=== PATIENT | male | born 1980 | race Caucasian/White ===

== ENCOUNTER 2017-09-16 03:23 | Emergency (ER) | payer MEDICAID ==
[~2017-09-16] VITALS: Ht 170.2 cm; Wt 104.3 kg
[~2017-09-16 03:23] MED LIST: ABAC300; ALBIPROI INH; ALBU.083IS; ALBU90I INH; ALBU90OI INH; ALBU90OI6 INH; ALBU90OI61 INH; AMIT75 PO; AMOX500 PO; AZIT250 PO; AZIT500 PO; Amoxicillin500 MG PO; Antivert25 MG PO; BENZ100A PO; BUSP10 PO; BUSP15 PO; CEPH500 PO; CIPR500 PO; COMBIVENT RESPIM4 GM INH; CYCL10 PO; Cipro500 MG PO; DIVA500EC; DOXY100 PO; Dazidox10 MG; FLUSAL1005 IH; FLUT110OIA; FLUT44OIA; FLUT44OIA IH; FLUT44OIA INH; Flagyl500 MG PO; HYDACE5 PO; HYDR1TAB94 PO; IBUP800 PO; METPRE4DP PO; METR500 PO; Mobic15 MG PO; NAPR500 PO; NAPR550 PO; Neurontin 300300 MG PO; OMEP10ER PO; OMEP20ER PO; ONDA4ODT MM; OXYACE5T PO; OXYACE7.5T PO; PENVK500 PO; PRED10 PO; PRED20 PO; PROM25 PO; Prednisone20 MG PO; RANI150 PO; RXALBOI INH; TRAM50 PO; Ultram50 MG PO; Veetids 500500 MG PO; Ventolin Soln3 ML INH; Zofran Odt4 MG SL
== END 2017-09-16 03:43 | disposition left against medical advice (07) ==
LOC: ER 03:23
DX: M79.644 Pain in right finger(s) (principal); M79.641 Pain in right hand; Z88.5 Allergy status to narcotic agent; Z88.6 Allergy status to analgesic agent; J45.909 Unspecified asthma, uncomplicated

== ENCOUNTER 2017-09-26 16:12 | Emergency (ER) | payer SELFPAY ==
[~2017-09-26] VITALS: Ht 170.2 cm; Wt 105.7 kg
== END 2017-09-26 17:22 | disposition left against medical advice (07) ==
LOC: ER 16:12
DX: S89.92XA Unspecified injury of left lower leg, initial encounter (principal); Z53.20 Procedure and treatment not carried out because of patient's decision for unspecified reasons; J45.909 Unspecified asthma, uncomplicated; Z87.891 Personal history of nicotine dependence; Z88.5 Allergy status to narcotic agent; Z79.51 Long term (current) use of inhaled steroids; W50.1XXA Accidental kick by another person, initial encounter; Y93.71 Activity, boxing
CPT/HCPCS: 99281

== ENCOUNTER 2018-05-09 05:18 | Emergency (ER) | payer MEDICAID ==
[~2018-05-09] VITALS: Ht 170.2 cm; Wt 104.3 kg
[2018-05-09 05:58] LABS: Influenza A Negative (NEGATIVE); Influenza B Negative (NEGATIVE)
[2018-05-09] MEDS ORDERED: Amoxicillin500 MG PO (06:56)
[2018-05-09] MEDS ORDERED: IBUP800 PO (06:56)
[2018-05-09] MEDS ORDERED: Acetaminophen-1 EAC1 PO (06:56)
== END 2018-05-09 07:09 | disposition home or self-care (01) ==
LOC: ER 05:18
PROVIDERS: Emergency Medicine
DX: J06.9 Acute upper respiratory infection, unspecified (principal); H66.92 Otitis media, unspecified, left ear; Z88.5 Allergy status to narcotic agent; Z88.6 Allergy status to analgesic agent; Z79.899 Other long term (current) drug therapy; J45.909 Unspecified asthma, uncomplicated; Z87.891 Personal history of nicotine dependence
CPT/HCPCS: 87081; 87430; 87804; 99283

== ENCOUNTER 2018-09-21 03:25 | Emergency (ER) | payer SELFPAY ==
[~2018-09-21] VITALS: Ht 170.2 cm; Wt 104.3 kg
[~2018-09-21 03:25] MED LIST changes: +Acetaminophen-1 EAC1 PO
[2018-09-21] MEDS ORDERED: Bactrim Ds Tab1 EACH PO (03:46)
== END 2018-09-21 03:51 | disposition home or self-care (01) ==
LOC: ER 03:25
DX: L72.3 Sebaceous cyst (principal); L03.221 Cellulitis of neck; J45.909 Unspecified asthma, uncomplicated; F17.200 Nicotine dependence, unspecified, uncomplicated; Z88.5 Allergy status to narcotic agent
CPT/HCPCS: 99282

== ENCOUNTER 2022-08-12 23:07 | Emergency (ER) | payer OTHER ==
[~2022-08-12] VITALS: Ht 170.2 cm; Wt 81.7 kg
[~2022-08-12 23:07] MED LIST changes: +Bactrim Ds Tab1 EACH PO; +OXAYDO5 M1 PO
[2022-08-12 23:17] VITALS: BP 124/80
[2022-08-13] MEDS ORDERED: CYCL10 PO (00:40)
[2022-08-13] MEDS ORDERED: ASPI81CH PO (00:54)
[2022-08-13] MEDS ORDERED: GABA100 PO (00:54)
== END 2022-08-13 01:03 | disposition home or self-care (01) ==
LOC: ER 23:07
DX: G89.29 Other chronic pain (principal); M54.6 Pain in thoracic spine; Z86.73 Personal history of transient ischemic attack (TIA), and cerebral infarction without residual deficits; Z88.5 Allergy status to narcotic agent; Z88.6 Allergy status to analgesic agent; Z87.891 Personal history of nicotine dependence
CPT/HCPCS: 99283

== ENCOUNTER 2023-08-21 18:23 | Emergency (ER) | payer OTHER ==
[~2023-08-21] VITALS: Ht 170.2 cm; Wt 113.4 kg
[~2023-08-21 18:23] MED LIST changes: +ASPI81CH PO; +GABA100 PO
[2023-08-21 19:02] LABS: BASOPHILS ABSOLUTE AUTO 0.03 K/mm3 (0.00-0.23); BASOPHILS PERCENT AUTO 0 % (0-2); EOSINOPHILS ABSOLUTE AUTO 0.18 K/mm3 (0.00-0.68); EOSINOPHILS PERCENT AUTO 3 % (0-6); Hematocrit 46.8 % (37.0-53.0); IMMATURE GRAN ABSOLUTE AUTO 0.01 K/mm3 (0.00-0.10); IMMATURE GRAN PERCENT AUTO 0 % (0-1); LYMPHOCYTES ABSOLUTE AUTO 2.22 K/mm3 (0.84-5.20); LYMPHOCYTES PERCENT AUTO 32 % (21-46); MONOCYTES ABSOLUTE AUTO 0.42 K/mm3 (0.16-1.47); MONOCYTES PERCENT AUTO 6 % (4-13); Mean Corpuscular HGB 28.1 pg (26.0-34.0); Mean Corpuscular HGB Conc 34.2 g/dL (31.5-36.5); Mean Corpuscular Volume 82 fL (80-100); Mean Platelet Volume 10.7 fL (9.1-12.4); NEUTROPHILS ABSOLUTE AUTO 3.99 K/mm3 (1.96-9.15); NEUTROPHILS PERCENT AUTO 58 % (41-73); Platelet Count 208 K/mm3 (150-400); RDW Coefficient Variation 12.3 % (11.7-14.2); White Blood Cell Count 6.85 K/mm3 (4.00-11.30)
[2023-08-21 19:38] LABS: Albumin, Blood 3.8 g/dL (3.4-5.0); Bilirubin, Total 0.4 mg/dL (0.1-1.0); Bun/Creatinine Ratio 15.4 (12.0-20.0); Calcium, Blood 8.6 mg/dL (8.5-10.1); Creatinine, Blood 0.78 mg/dL (0.60-1.20); Globulin, Blood 3.8 g/dL (2.2-4.0); Potassium, Blood 3.8 mmol/L (3.5-5.5); Total Protein, Blood 7.6 g/dL (6.4-8.2)
[2023-08-21] MEDS ORDERED: levETIRAcetam 500 MG in NS 100 ML IV ONE (19:55)
[2023-08-21 20:30] VITALS: BP 148/78
== END 2023-08-21 21:29 | disposition home or self-care (01) ==
LOC: ER 18:23
PROVIDERS: Emergency Medicine
DX: R41.82 Altered mental status, unspecified (principal); I69.220 Aphasia following other nontraumatic intracranial hemorrhage; I69.251 Hemiplegia and hemiparesis following other nontraumatic intracranial hemorrhage affecting right dominant side; Z79.82 Long term (current) use of aspirin
CPT/HCPCS: 70450; 80053; 82947; 85025; 93005; 93010; 96365; 99285-25; J1953

== ENCOUNTER 2024-03-14 16:21 | Inpatient (IN) | payer BC, OTHER ==
[~2024-03-14] VITALS: Ht 170.2 cm; Wt 90.7 kg
[2024-03-14 18:15] LABS: BASOPHILS ABSOLUTE AUTO 0.02 K/mm3 (0.00-0.23); BASOPHILS PERCENT AUTO 0 % (0-2); EOSINOPHILS ABSOLUTE AUTO 0.05 K/mm3 (0.00-0.68); EOSINOPHILS PERCENT AUTO 1 % (0-6); Hematocrit 43.2 % (37.0-53.0); IMMATURE GRAN ABSOLUTE AUTO 0.01 K/mm3 (0.00-0.10); IMMATURE GRAN PERCENT AUTO 0 % (0-1); LYMPHOCYTES ABSOLUTE AUTO 1.17 K/mm3 (0.84-5.20); LYMPHOCYTES PERCENT AUTO 18 % (21-46); MONOCYTES ABSOLUTE AUTO 0.38 K/mm3 (0.16-1.47); MONOCYTES PERCENT AUTO 6 % (4-13); Mean Corpuscular HGB 28.8 pg (26.0-34.0); Mean Corpuscular HGB Conc 34.7 g/dL (31.5-36.5); Mean Corpuscular Volume 83 fL (80-100); NEUTROPHILS ABSOLUTE AUTO 4.86 K/mm3 (1.96-9.15); NEUTROPHILS PERCENT AUTO 75 % (41-73); Platelet Count 204 K/mm3 (150-400); RDW Coefficient Variation 12.6 % (11.7-14.2); RDW Standard Deviation 37.9 fL (35.1-46.3); Red Blood Cell Count 5.21 M/mm3 (4.30-5.90); White Blood Cell Count 6.49 K/mm3 (4.00-11.30)
[2024-03-14 18:40] LABS: Albumin, Blood 4.1 g/dL (3.4-5.0); Albumin/Globulin Ratio 1.2 (0.8-1.8); Bilirubin, Total 0.5 mg/dL (0.1-1.0); Bun/Creatinine Ratio 15.7 (12.0-20.0); Calcium, Blood 8.8 mg/dL (8.5-10.1); Creatinine, Blood 0.76 mg/dL (0.60-1.20); Globulin, Blood 3.5 g/dL (2.2-4.0); Potassium, Blood 3.2 mmol/L (3.5-5.5); Total Protein, Blood 7.6 g/dL (6.4-8.2)
[2024-03-14 20:23] LABS: Source, Urine Clean Catch
[2024-03-14 20:37] LABS: Bilirubin, Urine Neg (Neg); Blood, Urine 4+ (Neg); Glucose Qualitative, Urine Neg (Neg); Ketones, Urine 4+ (Neg); Leukocyte Esterase, Urine Neg (Neg); Nitrite, Urine Neg (Neg); Protein, Urine 1+ (Neg); Urobilinogen, Urine 2+ (Normal); pH, Urine 6.5 (5.0-8.0)
[2024-03-14 20:49] LABS: Appearance, Urine Clear (Clear); Color, Urine Yellow (P-Yellow)
[2024-03-14 20:50] LABS: White Blood Cells, Urine 0-2 /hpf (0-5)
[2024-03-14 20:51] LABS: Bacteria Few /hpf; Calcium Oxalate Crystals Many /hpf; Squamous Epithelial Cells Rare /hpf (Few)
[2024-03-14] MEDS ORDERED: Ondansetron 4 MG TAB PO PRN (22:00)
[2024-03-14] MEDS ORDERED: Magnesium Hydroxide Conc 10 ML UDC PO PRN (22:00)
[2024-03-14] MEDS ORDERED: Labetalol HCL 5 MG/ML 4ML Injection (Single Dose) IV PRN (22:05)
[2024-03-14] MEDS ORDERED: Aspirin 325 MG Tab PO ONE (22:05)
[2024-03-14] MEDS ORDERED: Melatonin 3 MG Tab PO PRN (22:05)
[2024-03-14 23:16] LABS: International Normalized Ratio 1.19; Prothrombin Time Results 12.6 Sec (9.7-11.5)
[2024-03-14] MEDS ORDERED: Potassium Chloride 40 MEQ in NS 250 ML IV ONE (23:40)
[2024-03-15 04:59] LABS: Alanine Aminotransfer (ALT/SGP 31 U/L (12-78); Albumin, Blood 3.6 g/dL (3.4-5.0); Albumin/Globulin Ratio 1.2 (0.8-1.8); Alk Phos 51 U/L (50-136); Anion Gap 11 mmol/L (3-11); Aspartate Aminotrans (AST/SGOT 21 U/L (12-37); Bilirubin, Total 0.5 mg/dL (0.1-1.0); Blood Urea Nitrogen 12 mg/dL (8-24); Bun/Creatinine Ratio 15.5 (12.0-20.0); CO2, Blood 27 mmol/L (21-32); Calcium, Blood 8.5 mg/dL (8.5-10.1); Chloride, Blood 110 mmol/L (98-108); Cholesterol 75 mg/dL (50-200); Creatinine, Blood 0.78 mg/dL (0.60-1.20); Glomerular Filtration Rate 115 (60-); Glucose, Blood 103 mg/dL (70-99); HDL Cholesterol 37 mg/dL (>39); LDL/HDL RATIO 0.6; Low Density Lipoprotein Chol 22 mg/dL (0-110); Magnesium, Blood 2.2 mg/dL (1.6-2.4); Potassium, Blood 3.8 mmol/L (3.5-5.5); Sodium, Blood 144 mmol/L (136-145); Total Protein, Blood 6.6 g/dL (6.4-8.2); Triglycerides 79 mg/dL (30-160); Very Low Density Lipoprot Chol 15 mg/dL (6-32)
[2024-03-15 05:01] LABS: BASOPHILS ABSOLUTE AUTO 0.03 K/mm3 (0.00-0.23); BASOPHILS PERCENT AUTO 1 % (0-2); EOSINOPHILS ABSOLUTE AUTO 0.15 K/mm3 (0.00-0.68); EOSINOPHILS PERCENT AUTO 2 % (0-6); Hematocrit 40.4 % (37.0-53.0); Hemoglobin 13.8 g/dL (13.5-17.5); IMMATURE GRAN ABSOLUTE AUTO 0.02 K/mm3 (0.00-0.10); IMMATURE GRAN PERCENT AUTO 0 % (0-1); LYMPHOCYTES PERCENT AUTO 34 % (21-46); MONOCYTES ABSOLUTE AUTO 0.49 K/mm3 (0.16-1.47); MONOCYTES PERCENT AUTO 8 % (4-13); Mean Corpuscular HGB 28.3 pg (26.0-34.0); Mean Corpuscular HGB Conc 34.2 g/dL (31.5-36.5); Mean Corpuscular Volume 83 fL (80-100); NEUTROPHILS ABSOLUTE AUTO 3.41 K/mm3 (1.96-9.15); NEUTROPHILS PERCENT AUTO 55 % (41-73); RDW Coefficient Variation 12.8 % (11.7-14.2); RDW Standard Deviation 38.6 fL (35.1-46.3); Red Blood Cell Count 4.87 M/mm3 (4.30-5.90)
[2024-03-15 05:17] LABS: Platelet Count 162 K/mm3 (150-400)
[2024-03-15 08:45] LABS: Bicarbonate Venous 26.5 mmol/L (24.0-30.0); PCO2 Venous 43.6 mmHg (38-42); pH Blood Venous 7.41 (7.34-7.37)
[2024-03-15 08:49] LABS: U Amphetamine Screen Not Detected; U Barbituate Screen Not Detected; U Benzodiazapine Screen Not Detected; U Buprenorphine Screen Not Detected; U Cannabinoids Screen DETECTED; U Cocaine Screen Not Detected; U Methadone Screen Not Detected; U Methamphetamine Screen Not Detected; U Opiates Screen Not Detected; U Oxycodone Screen Not Detected; U Phencyclidine Screen Not Detected
[2024-03-15] MEDS ORDERED: Sennosides 8.6 MG Tab PO SCH (09:00)
[2024-03-15] MEDS ORDERED: Clopidogrel Bisulfate 75 MG Tab PO SCH (09:00)
[2024-03-15 09:19] LABS: Phosphorus, Blood 2.6 mg/dL (2.5-4.9); Thyroid Stimulating Hormone 0.359 uIU/mL (0.360-4.800)
[2024-03-15 09:54] VITALS: BP 131/82
[2024-03-15 12:34] VITALS: BP 139/82
[2024-03-15 12:55] LABS: Free Thyroxine 1.23 ng/dL (0.70-1.60); Triiodothyronine, Free 2.34 pg/mL (2.18-3.98)
[2024-03-15] MEDS ORDERED: Aspirin 81 MG Chew PO SCH (18:00)
--- NOTE | 2024-03-15 18:41 | NUR ---
ADMIT NOTE/SHIFT SUMMARY PT ARRIVED TO PCU FROM ED VIA ED STRETCHER THIS AM. PT WAS SLID BY 3 STAFF FROM ED STRETCHER TO PCU BED. PT ALERT, ABLE TO MAKE NEEDS KNOWN. MUMBLED SPEECH, SOMETIMES DIFFICULT TO UNDERSTAND. FACIAL DROOP NOTED WELL R SIDED DEFECITS. NEEDING HELP OPENING THINGS ON TRAY, BUT ABLE TO FEED SELF. SP02>90% ON RA, TELEMETRY SHOWS NSR, HR 70'S. PT CHANGED TO MED TELE STATUS. INCONTINENT OF URINE AND STOOL. CLOTHES AND LINEN CHANGED. PURWIK TO SUCTION. UPDATED FAMILY PER PT'S REQUEST VIA PHONE. MULTIPLE FAMILY MEMBERS IN ROOM THIS EVENING. CALL LIGHT IN REACH.
[2024-03-15 20:15] VITALS: BP 122/85
[2024-03-15] MEDS ORDERED: Ibuprofen 400 MG Tab PO PRN (22:05)
[2024-03-15] MEDS ORDERED: Benzocaine Oral Spray 0.5ML UD MT PRN (22:05)
--- NOTE | 2024-03-15 22:27 | NUR ---
Transfer note. Night resident was phoned for complaints of oral abscess. Resident came to the bedside and will place orders for ABX, pain meds. Pt remains A&Ox2, poor historian. Family at bedside for night assessment and was able to answer some questions. Weakness to right arm/leg. Mumbled speech. Pt is very pleasant and cooperative with care. Pt is very apologetic for any needs. Pt has been incontinent of bowel and bladder. Male wicking system in place. Pt is able to make needs known, call light is within reach. All belongings were taken with Pt on transfer.
--- NOTE | 2024-03-15 22:36 | NUR ---
RECIEVED PATIENT RECIEVED PT FROM PCU AT 2235. PT AOX4, COOPERATIVE, AND ABLE TO MAKE NEEDS KNOWN. PT ON BEDREST, WITH R SIDED WEAKNESS. PT ON TELEMETRY. THIS RN RN TO ASSUME CARE FOR PT.
[2024-03-15 22:41] VITALS: BP 126/73
[2024-03-16] VITALS (7 sets, daily range): BP systolic 97–131; BP diastolic 55–78
--- NOTE | 2024-03-16 00:36 | NUR ---
PT TRANSFERED FROM [facility] @ 2711. AUTOMATION QA LEAD CALLED TO REPORT HR SUSTAINED IN 40'S. APPARENTLY THIS IS NEW, PT HR DID DROP INTO 40'S BRIEFLY AND HR BACK UP IN UPPER 50'S LOW 60'S. NOTIFIED DR. MOSER WITH ORDERS TO MONITOR HR AND SYMTOMS. IT PT SUSTAINS A HR IN THE 30'S WITH HYPOTENSION NOTIFY DR. MOSER.
--- NOTE | 2024-03-16 06:05 | NUR ---
NURSE NOTE PER TELE, PT WAS SB RATE 35. CHECKED VITALS AND OTHER VSS. PT HAD NO COMPLAINTS OF PAIN OR DISCOMFORT. CHECKED IN WITH TELE AT 0607, AND PT WAS SB RATE 55.
--- NOTE | 2024-03-16 06:25 | NUR ---
SHIFT SUMMARY PT TRANSFERRED FROM PCU AT 2237. PT WAS AOX4, WITH SPEECH DEFICITS, AND R SIDED WEAKNESS. PT WAS INCONTINENT, WITH PURWIK USED FOR URINATION. OVERNIGHT, PT HAD EPISODES OF SB IN 40S. BASELINE WAS NSR 60S. PT SUSTAINED IN THE 40S, VITALS WERE TAKEN, WHICH WERE STABLE. PT HAD NO COMPLAINTS. HOSPITALIST WAS CALLED AND ADVISED TO CALL AGAIN IF PT HR WENT IN 30S AND VITALS WERE NOT STABLE. PER TELE, PT HAD AN EPISODE OF SB 35, AND VITALS WERE TAKEN, WHICH WERE STABLE. PT HAD NO COMPLAINTS. NO OTHER ACUTE EVENTS OVERNIGHT.
[2024-03-16] MEDS ORDERED: NS 250 ML IV PRN (07:40)
[2024-03-16] MEDS ORDERED: MetroNIDAZOLE 500 MG Tab PO SCH (09:00)
[2024-03-16] MEDS ORDERED: FLUoxetine HCL 20 MG CAP PO SCH (15:00)
--- NOTE | 2024-03-16 17:21 | NUR ---
PT AOX4 AND COOPERATIVE OF CARE. PT IS ABLE TO BE INDEPENDENT TO BSC NO DISTESS NOTED. PT HAS BEEN TITRATED DOWN TO 2L WHILE AWAKE AND PT IS MAINTIANING HIGHER 90s. TREATED FOR KNEE PAIN PER EMAR. NO DISTRESS NOTED AND CALL LIGHT IN REACH.
--- NOTE | 2024-03-16 17:25 | NUR ---
PT IS AOX4 JUST HAS TROUBLE TALKING VERBALLY, AT TIMES HE GET MUCH CLEARER WITH HIS SPEACH ESPECIALLY WHEN HE IS TRYING TO COMMUNICATE WITH HIS FAMILY. RIGHT SIDED WEAKNESSS CONTINUES. PT HAS BEEN HELPING WITH MUCH OF HIS INCONTENT CHANGES HE CAN AND CALLS IMMEDIATELY WHEN WET. TREATED FOR TOOTH PAIN ON L SIDE OF MOUTH PER EMAR. CALL LIGHT WITHIN REACH WILL CONTINUE TO MONITOR.
[2024-03-17 04:59] VITALS: BP 139/99
--- NOTE | 2024-03-17 05:58 | NUR ---
SHIFT SUMMARY PT HAS BEEN RESTING COMFORTABLY OVERNIGHT. HE REMAINS AOX4. HIS FAMILY VISITED FOR AN HOUR AT SHIFT CHANGE, WHICH SEEMED TO DELIGHT HIM. PT REMAINS ON BEDREST AND IS INCONTINENT X2, BUT HE HAS BEEN ABLE TO NOTICE WHEN HIS ATTENDS ARE SOILED AND CLEAN HIMSELF WITH LITTLE HELP. PT URINATED 2X TIMES OVERNIGHT. PT ON TELEMETRY. BED HAS BEEN LOCKED IN LOWEST POSITION. NO ACUTE EVENTS OVERNIGHT.
[2024-03-17 07:36] VITALS: BP 106/82
[2024-03-17 15:14] VITALS: BP 149/68
--- NOTE | 2024-03-17 15:52 | NUR ---
PT WORKED WITH PT/OT TODAY, SEE NOTES FOR DETAILS. NEW PLAN IS FOR PT TO SIT UP IN THE CHAIR FOR ALL MEALS, PT WILL BE A X2A/GB/W STANDPIVOT TO CHAIR. PT HAD MINIMAL C/O RIGHT SHOULDER PAIN WHILE WORKING WITH PT/OT THIS NURSE TOLD MD MURPHY AND SCHEDULED R SHOULDER 2V XRAY. AT THIS TIME PT HAS NO QUESTIONS OR CONCERNS.
--- NOTE | 2024-03-17 17:39 | NUR ---
PT HAD AND ACUTE EPISODE OF 13O HEART RATE, VOALIZING IS HEART WAS BEATING FAST AND THIS NURSE ASKED ADDITIONAL QUESTION, THIS NURSE GRABBED EKG AND CALLED MD MURPHY FOR EVALUATION, ORDERS PLACED AND WATING ON LABS TO RESOVLE.
[2024-03-17 17:45] LABS: BASOPHILS ABSOLUTE AUTO 0.03 K/mm3 (0.00-0.23); BASOPHILS PERCENT AUTO 0 % (0-2); EOSINOPHILS ABSOLUTE AUTO 0.07 K/mm3 (0.00-0.68); EOSINOPHILS PERCENT AUTO 1 % (0-6); Hemoglobin 16.2 g/dL (13.5-17.5); IMMATURE GRAN ABSOLUTE AUTO 0.01 K/mm3 (0.00-0.10); IMMATURE GRAN PERCENT AUTO 0 % (0-1); LYMPHOCYTES ABSOLUTE AUTO 1.49 K/mm3 (0.84-5.20); LYMPHOCYTES PERCENT AUTO 20 % (21-46); MONOCYTES ABSOLUTE AUTO 0.47 K/mm3 (0.16-1.47); MONOCYTES PERCENT AUTO 6 % (4-13); Mean Corpuscular HGB 28.8 pg (26.0-34.0); Mean Corpuscular HGB Conc 35.2 g/dL (31.5-36.5); Mean Corpuscular Volume 82 fL (80-100); Mean Platelet Volume 11.8 fL (9.1-12.4); NEUTROPHILS ABSOLUTE AUTO 5.34 K/mm3 (1.96-9.15); NEUTROPHILS PERCENT AUTO 72 % (41-73); Platelet Count 247 K/mm3 (150-400); RDW Coefficient Variation 12.6 % (11.7-14.2); Red Blood Cell Count 5.63 M/mm3 (4.30-5.90); White Blood Cell Count 7.41 K/mm3 (4.00-11.30)
[2024-03-17 18:24] LABS: Albumin, Blood 4.2 g/dL (3.4-5.0); Albumin/Globulin Ratio 1.2 (0.8-1.8); Bilirubin, Total 0.4 mg/dL (0.1-1.0); Bun/Creatinine Ratio 13.5 (12.0-20.0); Calcium, Blood 9.4 mg/dL (8.5-10.1); Creatinine, Blood 0.89 mg/dL (0.60-1.20); Globulin, Blood 3.5 g/dL (2.2-4.0); Potassium, Blood 3.8 mmol/L (3.5-5.5); Total Protein, Blood 7.7 g/dL (6.4-8.2)
[2024-03-17 19:52] VITALS: BP 125/100
[2024-03-18 03:51] VITALS: BP 139/91
--- NOTE | 2024-03-18 05:57 | NUR ---
SHIFT SUMMARY PT HAS BEEN AOX4. PT WAS TAKEN FOR CXR EARLY IN SHIFT, AND HE WAS NOTICEABLY DESPONDENT. PT HAS BEEN WITHDRAWN SINCE THEN. PT HAS HAD R SHOULDER PAIN WHEN HE MOVES HIS R ARM. OTHERWISE, PT HAS HAD NO COMPLAINTS. PT REMAINS MOTIVATED WHEN HE NEEDS TO CHANGE HIS ATTENDS. PT IS ON TELE. NO ACUTE EVENTS OVERNIGHT.
[2024-03-18 08:00] VITALS: BP 141/72
--- NOTE | 2024-03-18 16:20 | NUR ---
PT HAD A GREAT DAY TODAY. HAD MINIMAL C/O PAIN AND PRN MEDICATIONS RESOLVED PAIN. OT HAS NO QUESTIONS OR CONCERNS AT THIS TIME
[2024-03-18 16:32] VITALS: BP 136/69
[2024-03-18 20:43] VITALS: BP 131/56
[2024-03-19 04:25] VITALS: BP 126/111
--- NOTE | 2024-03-19 06:21 | NUR ---
SHIFT SUMMARY: PT IS ALERT AND ORIENTED. PT IS CALM AND COOPERATIVE WITH CARE. PT CALLS APPROPRIATELY. PT DENIES PAIN, NAUSEA, VOMITING, AND SOB. PT SLEPT INTERMITTENTLY T/O THE NIGHT. NO ACUTE CHANGES OR COMPLICATIONS. PENDING SNF OR IRU PLACEMENT. WILL REPORT TO DAY NURSE.
[2024-03-19 07:20] VITALS: BP 142/77
[2024-03-19 11:19] VITALS: BP 141/62
[2024-03-19 15:27] VITALS: BP 129/75
[2024-03-19] MEDS ORDERED: Atorvastatin 40 MG Tab PO SCH (16:00)
--- NOTE | 2024-03-19 16:44 | NUR ---
SHIFT SUMMARY PATIENT MEDICATED FOR RIGHT NECK AND SHOULDER PAIN X1 WITH ADVIL. DENIES NAUSEA AND SHORTNESS OF BREATH. RESPIRATIONS EVEN AND UNLABORED ON ROOM AIR. GOOD APPETITE. FAMILY AT BEDSIDE IN AM. WORKED WITH PT/OT TODAY, STATED TOO TIRED TO STAND. ANSWERS ORIENTATION QUESTIONS APPROPRIATELY AND MAKES NEEDS KNOW. PLEASANT AND COOPERATIVE WITH CARE.
[2024-03-19 19:28] VITALS: BP 123/57
[2024-03-20 03:04] VITALS: BP 135/86
[2024-03-20] MEDS ORDERED: Calcium Carbonate 500 MG Tab Chew PO PRN (03:10)
--- NOTE | 2024-03-20 04:12 | NUR ---
SHIFT SUMMARY - NO ACUTE CHANGES THIS SHIFT. PT MAKES HIS NEEDS KNOWN AND USES THE CALL LIGHT APPROPRIATELY. PT HAS BEEN INCONTINENT OF URINE - ATTENDS IN PLACE. PT HAS RIGHT SIDED DEFICIT. PT HAS A HISTORY OF A CVA. CALL LIGHT WITHIN REACH. BED IN LOW POSITION. FLUIDS AT BEDSIDE.
[2024-03-20 07:48] VITALS: BP 137/65
--- NOTE | 2024-03-20 11:37 | NUR ---
Nurse approached this credit front office developer and chaplain cope in the [place] about a pt's rosary beads breaking and the pt requesting more. We obtained rosary beads and visited pt. Pt is awake and alert but difficult to understand. Pt requested the beads be blessed. Pump Assembler mike provided a blessing. Pt expressed deep gratitude for blessing. Pt requested prayer for his wellness. This credit front office developer provided a prayer and pt verbally expressed gratitude. Pt appeared encouraged by the visit. Expressed availability for future visits and departed.
[2024-03-20 15:58] VITALS: BP 133/83
--- NOTE | 2024-03-20 18:26 | NUR ---
NO ACUTE CHANGES THIS SHIFT. PT IS ALERT AND ORIENTED X4, ABLET TO EXPRESS NEEDS, ASSIST WITH ADLS. POLITE. IMPAIRED SPEECH. OT DID WORK WITH PT TODAY.
[2024-03-20 20:08] VITALS: BP 141/78
--- NOTE | 2024-03-21 03:58 | NUR ---
SHIFT SUMMARY PT ALERT ORIENTED X 4 CALLS APPROPRIATELY. USES CALL LIGHT. TAKES HIS MEDS CRUSHED IN APPLESAUCE. VSS ON RA SATTING AT 96% ON RA. HE C/O DIFFICULTY FALLING ASLEEP AND MEDICATED WITH MELATONIN WITH GOOD RELIEF AND SLEPT MOST OF THE NIGHT. NO C/O PAIN THIS SHIFT. HES INC OF B&B AND WEARS BRIEFS, HES AWAITING SNF PLACEMENT. REMAINS WITH RT SIDED DEFECIT R/T HIS CVA. HES RESTING IN BED AT THIS TIME WITH CALL LIGHT IN REACH
[2024-03-21 05:35] VITALS: BP 141/89
[2024-03-21 08:00] VITALS: BP 122/64
--- NOTE | 2024-03-21 15:20 | NUR ---
Pt is awake and alert. Pt is joined at bedside by brother. Pt has suffered a stroke and has difficulty speaking clearly. Pt and brother are supported by other family members locally. Pt's condition seems to be gradually improving. Prayed with pt and as thanked by pt and brother for the visit.
[2024-03-21 16:40] VITALS: BP 118/88
--- NOTE | 2024-03-21 17:59 | NUR ---
SHIFT SUMMARY: PATIENT HAS HAD NO NEW CHANGES THIS SHIFT. PATIENT A/O, MUMBLED SPEECH, WEAKNESS TO R UPPER AND LOWER EXTREMITY, PLEASANT AND COOPERATIVE c CARE. PATIENT WORKED c PT/OT TODAY, INCONTINENT OF BOWEL/BLADDER, ATTENDS PLACED AND CHANGED PRN. PATIENT MEDICATED FOR BACK PAIN PER EMAR c GOOD EFFECT. VITAL SIGNS REVIEWED. CALL LIGHT IN REACH.
[2024-03-21 20:07] VITALS: BP 139/62
--- NOTE | 2024-03-22 03:01 | NUR ---
SHIFT SUMM: PT IS A PLEASANT 43 YO FULL CODE WHO WAS ADMITTED FOR CVA. PT HAS RIGHT SIDED WEAKNESS AND IS INCONT TO BOWEL AND URINE BUT CALLS FOR HELP CHANGING AND TRIES TO DO MOST OF HIS CARE ON HIS OWN. PT EXPRESSES RECENTLY LOSING HIS MOTHER BUT IS TRYING TO REMAIN POSITIVE GIVEN HIS SITUATION. PT HAS BEEN WORKING WITH PT/OT AND HOPING TO FIND SNF PLACEMENT SOON. PT HAS NO IV ACCESS W/A ORDER. PT TAKES MEDS CRUSHED IN APPLESAUCE AND SOFT BITE SIZED DIET.PT MUMBLES WHEN HE SPEAKS FROM CVA DEFICITS. PT HAS NOT BEEN IN PAIN THIS SHIFT BUT DID REQUEST SOMETHING TO HELP HIM SLEEP. PT HAS CALL LIGHT IN REACH AND CALLS NEEDED.
[2024-03-22 05:38] VITALS: BP 133/89
[2024-03-22 05:41] VITALS: BP 133/89
[2024-03-22 07:31] VITALS: BP 125/72
[2024-03-22] MEDS ORDERED: ASPI81CH PO (11:07)
[2024-03-22] MEDS ORDERED: ATOR40TA PO (11:07)
[2024-03-22] MEDS ORDERED: MELA3 PO (11:08)
[2024-03-22] MEDS ORDERED: Prozac20 MG PO (11:08)
--- NOTE | 2024-03-22 11:26 | NUR ---
SHIFT/DISCHARGED SUMMARY: PATIENT HAS HAD NO CHANGES THIS SHIFT. PATIENT A/O, WEAKNESS TO R UPPER AND LOWER EXTREMITY. PATIENT DENIES CP/PRESSURE, SOB, N/V AND DIZZINESS. PATIENT RECEIVED SCHEDULED MEDS PER EMAR. PATIENT HAS GOOD APPETITE, NO ISSUES OR TROUBLE SWALLOWING. PATIENT INCONTINENT OF BOWEL/BLADDER, ATTENDS PLACED AND CHANGED PRN. PATIENT HAS HAD NO NEW CONCERNED OR NO COMPLAINTS THIS SHIFT. PATIENT BROTHER SANTHOSH UPDATED c PLAN OF CARE DC TO [facility] AT EXPECTED TIME FRAME FOR FINISHER [employer]. SANTHOSH VERBALIZED UNDERSTANDING AND NO FURTHER QUESTIONS. PATIENT DISCHARGED TO [facility] FOR REHAB. TR GIVEN TO SARA NURSE. DISCHARGE INSTRUCTIONS PACKET GIVEN TO PETER PARKS. ALL PERSONAL BELONGINGS WERE SENT c THE PATIENT. PATIENT LEFT THE ROOM AT 1120 VIA W/CHAIR.
== END 2024-03-22 11:20 | DRG 57 ==
LOC: ER 16:21 → ERHOLD 21:55 → MEDS 21:55 → PCU 21:55 → MEDS 03-15 22:37
PROVIDERS: Family Medicine; Student in an Organized Health Care Education/Training Program; ADMIT Internal Medicine
DX: I69.954 Hemiplegia and hemiparesis following unspecified cerebrovascular disease affecting left non-dominant side (principal); R47.1 Dysarthria and anarthria; G51.0 Bell's palsy; R47.02 Dysphasia; E87.6 Hypokalemia; F32.A Depression, unspecified; M25.511 Pain in right shoulder; Z88.8 Allergy status to other drugs, medicaments and biological substances; Z88.5 Allergy status to narcotic agent; F15.10 Other stimulant abuse, uncomplicated; Z79.82 Long term (current) use of aspirin; Z79.899 Other long term (current) drug therapy
CPT/HCPCS: 36415; 70450; 73030; 80053; 80061; 81001; 82607; 82746; 82803; 83735; 84100; 84439; 84443; 84481; 84484; 85025; 85610; 85730; 86592; 92523; 92610; 93005; 93010; 97110; 97112; 97162; 97166; 97530; 97535; 99285-25; A9270; J3480; J7050

== ENCOUNTER 2024-03-30 12:10 | Emergency (ER) | payer BC, OTHER ==
[~2024-03-30] VITALS: Ht 175.3 cm; Wt 102.1 kg
[~2024-03-30 12:10] MED LIST changes: +ATOR40TA PO; +MELA3 PO; +Prozac20 MG PO
[2024-03-30 12:18] VITALS: BP 140/71
[2024-03-30] MEDS ORDERED: Clindamycin 600mg in D5W 50 ML IV ONE (13:00)
[2024-03-30 13:04] LABS: BASOPHILS ABSOLUTE AUTO 0.03 K/mm3 (0.00-0.23); BASOPHILS PERCENT AUTO 0 % (0-2); EOSINOPHILS ABSOLUTE AUTO 0.09 K/mm3 (0.00-0.68); EOSINOPHILS PERCENT AUTO 1 % (0-6); Hematocrit 45.7 % (37.0-53.0); Hemoglobin 15.4 g/dL (13.5-17.5); IMMATURE GRAN ABSOLUTE AUTO 0.02 K/mm3 (0.00-0.10); IMMATURE GRAN PERCENT AUTO 0 % (0-1); LYMPHOCYTES ABSOLUTE AUTO 1.61 K/mm3 (0.84-5.20); LYMPHOCYTES PERCENT AUTO 17 % (21-46); MONOCYTES ABSOLUTE AUTO 0.44 K/mm3 (0.16-1.47); MONOCYTES PERCENT AUTO 5 % (4-13); Mean Corpuscular HGB Conc 33.7 g/dL (31.5-36.5); Mean Corpuscular Volume 83 fL (80-100); Mean Platelet Volume 11.3 fL (9.1-12.4); NEUTROPHILS ABSOLUTE AUTO 7.16 K/mm3 (1.96-9.15); NEUTROPHILS PERCENT AUTO 77 % (41-73); Platelet Count 238 K/mm3 (150-400); RDW Coefficient Variation 12.7 % (11.7-14.2); RDW Standard Deviation 38.4 fL (35.1-46.3); White Blood Cell Count 9.35 K/mm3 (4.00-11.30)
[2024-03-30 13:14] LABS: Bun/Creatinine Ratio 23.6 (12.0-20.0); Calcium, Blood 8.8 mg/dL (8.5-10.1); Creatinine, Blood 0.72 mg/dL (0.60-1.20); Potassium, Blood 3.9 mmol/L (3.5-5.5)
[2024-03-30] MEDS ORDERED: CLIN300 PO (14:13)
== END 2024-03-30 17:05 | disposition home or self-care (01) ==
LOC: ER 12:10
PROVIDERS: Emergency Medicine
DX: K04.7 Periapical abscess without sinus (principal); K05.6 Periodontal disease, unspecified; E78.5 Hyperlipidemia, unspecified; J45.909 Unspecified asthma, uncomplicated; F17.290 Nicotine dependence, other tobacco product, uncomplicated; Z88.5 Allergy status to narcotic agent; Z88.6 Allergy status to analgesic agent; Z79.82 Long term (current) use of aspirin; Z79.02 Long term (current) use of antithrombotics/antiplatelets; Z79.899 Other long term (current) drug therapy; Z79.890 Hormone replacement therapy
CPT/HCPCS: 70487; 80048; 85025; 96374-59; 99284-25; Q9967

== ENCOUNTER 2024-08-17 12:52 | Inpatient (IN) | payer BC, OTHER ==
[~2024-08-17] VITALS: Ht 170.2 cm; Wt 84.6 kg
[~2024-08-17 12:52] MED LIST changes: +CLIN300 PO
[2024-08-17 13:22] LABS: Source, Urine Clean Catch
[2024-08-17 13:26] LABS: Bilirubin, Urine Neg (Neg); Color, Urine Yellow (P-Yellow); Glucose Qualitative, Urine Neg (Neg); Ketones, Urine Neg (Neg); Leukocyte Esterase, Urine Neg (Neg); Protein, Urine 1+ (Neg); Specific Gravity, Urine 1.010 (1.003-1.022); Urobilinogen, Urine NORM (Normal)
[2024-08-17] MEDS ORDERED: DiphenhydrAMINE HCl 50 MG/ML 1ML Vial ONE (13:27)
[2024-08-17] MEDS ORDERED: Haloperidol Lactate Inj. 5 MG/ML Injection ONE (13:27)
[2024-08-17 13:36] LABS: White Blood Cells, Urine 0-2 /hpf (0-5)
[2024-08-17 13:37] LABS: U Amphetamine Screen Not Detected; U Barbituate Screen Not Detected; U Benzodiazapine Screen Not Detected; U Buprenorphine Screen Not Detected; U Cannabinoids Screen DETECTED; U Cocaine Screen Not Detected; U Methadone Screen Not Detected; U Methamphetamine Screen Not Detected; U Opiates Screen Not Detected; U Oxycodone Screen Not Detected; U Phencyclidine Screen Not Detected
[2024-08-17] MEDS ORDERED: Haloperidol Lactate Inj. 5 MG/ML Injection IM ONE (13:55)
[2024-08-17] MEDS ORDERED: DiphenhydrAMINE HCl 50 MG/ML 1ML Vial IM ONE (13:55)
[2024-08-17 14:07] LABS: BASOPHILS ABSOLUTE AUTO 0.02 K/mm3 (0.00-0.23); BASOPHILS PERCENT AUTO 0 % (0-2); EOSINOPHILS ABSOLUTE AUTO 0.00 K/mm3 (0.00-0.68); EOSINOPHILS PERCENT AUTO 0 % (0-6); Hematocrit 48.7 % (37.0-53.0); Hemoglobin 16.0 g/dL (13.5-17.5); IMMATURE GRAN ABSOLUTE AUTO 0.04 K/mm3 (0.00-0.10); IMMATURE GRAN PERCENT AUTO 0 % (0-1); LYMPHOCYTES ABSOLUTE AUTO 1.21 K/mm3 (0.84-5.20); LYMPHOCYTES PERCENT AUTO 12 % (21-46); MONOCYTES ABSOLUTE AUTO 0.37 K/mm3 (0.16-1.47); MONOCYTES PERCENT AUTO 4 % (4-13); Mean Corpuscular HGB Conc 32.9 g/dL (31.5-36.5); Mean Corpuscular Volume 85 fL (80-100); NEUTROPHILS ABSOLUTE AUTO 8.19 K/mm3 (1.96-9.15); NEUTROPHILS PERCENT AUTO 83 % (41-73); NRBC ABSOLUTE 0.00 K/mm3 (0.00-0.02); NRBC Auto 0.0 /100 WBC (0.0-0.2); Platelet Count 226 K/mm3 (150-400); RDW Coefficient Variation 13.1 % (11.7-14.2); RDW Standard Deviation 40.2 fL (35.1-46.3)
[2024-08-17] MEDS ORDERED: SIME80CH PO (14:19)
[2024-08-17] MEDS ORDERED: PRAZ1 PO (14:20)
[2024-08-17] MEDS ORDERED: ZINC15 PO (14:20)
[2024-08-17] MEDS ORDERED: OMEP20ER PO (14:21)
[2024-08-17] MEDS ORDERED: GABA300 PO (14:21)
[2024-08-17] MEDS ORDERED: GABA100 PO (14:22)
[2024-08-17] MEDS ORDERED: SENNA LAXATIVE8.6 MG PO (14:22)
[2024-08-17] MEDS ORDERED: DIVA500EC PO (14:24)
[2024-08-17 14:27] LABS: Salicylate <1.7 mg/dL (2.8-20.0)
[2024-08-17 14:45] LABS: Alanine Aminotransfer (ALT/SGP 57 U/L (12-78); Albumin, Blood 4.6 g/dL (3.4-5.0); Albumin/Globulin Ratio 1.2 (0.8-1.8); Anion Gap 17 mmol/L (3-11); Aspartate Aminotrans (AST/SGOT 35 U/L (12-37); Bilirubin, Total 0.5 mg/dL (0.1-1.0); Blood Urea Nitrogen 13 mg/dL (8-24); CO2, Blood 20 mmol/L (21-32); Calcium, Blood 8.9 mg/dL (8.5-10.1); Chloride, Blood 108 mmol/L (98-108); Creatinine, Blood 0.84 mg/dL (0.60-1.20); Ethanol (Alcohol), Blood, Med 302 mg/dL; Globulin, Blood 3.7 g/dL (2.2-4.0); Glucose, Blood 109 mg/dL (70-99); Potassium, Blood 3.2 mmol/L (3.5-5.5); Sodium, Blood 142 mmol/L (136-145); Total Protein, Blood 8.3 g/dL (6.4-8.2)
[2024-08-17] MEDS ORDERED: Ziprasidone Mesylate 20 MG / Vial IM ONE (14:45)
[2024-08-17 14:46] LABS: Acetaminophen, Random <2.0 ug/mL (10.0-30.0)
[2024-08-17] MEDS ORDERED: Midazolam HCL 1 MG/ML 5MLVIAL IM ONE (15:50)
[2024-08-17] MEDS ORDERED: Midazolam HCl 1MG / ML 2ML Vial ONE (15:52)
[2024-08-17] MEDS ORDERED: Midazolam HCl 1MG / ML 2ML Vial IV ONE (15:55)
[2024-08-17] MEDS ORDERED: NS 1,000 ML IV SCH ×2 (18:45)
[2024-08-17 19:44] LABS: pH Blood Venous 7.33 (7.34-7.37)
[2024-08-17] MEDS ORDERED: Diazepam 5 MG / ML 2ML SYR IV PRN (20:10)
[2024-08-17 20:15] LABS: Anion Gap 8.0 mmol/L (3-11); Blood Urea Nitrogen 10.0 mg/dL (8-24); CO2, Blood 26.0 mmol/L (21-32); Calcium, Blood 7.9 mg/dL (8.5-10.1); Chloride, Blood 116.0 mmol/L (98-108); Creatinine, Blood 0.93 mg/dL (0.60-1.20); Glucose, Blood 91.0 mg/dL (70-99); Potassium, Blood 4.0 mmol/L (3.5-5.5); Sodium, Blood 146.0 mmol/L (136-145)
[2024-08-17] MEDS ORDERED: LEVOCARNITINE 100 MG/ML PO SCH (21:00)
[2024-08-17 23:54] LABS: pH Blood Venous 7.32 (7.34-7.37)
[2024-08-18] VITALS (9 sets, daily range): BP systolic 83–140; BP diastolic 50–67
[2024-08-18] MEDS ORDERED: Albuterol 2.5 MG/3 ML VIAL INH PRN (03:45)
[2024-08-18 04:41] LABS: Anion Gap 14.0 mmol/L (3-11); Blood Urea Nitrogen 14.0 mg/dL (8-24); CO2, Blood 21.0 mmol/L (21-32); Calcium, Blood 8.6 mg/dL (8.5-10.1); Chloride, Blood 114.0 mmol/L (98-108); Creatinine, Blood 0.75 mg/dL (0.60-1.20); Glucose, Blood 58.0 mg/dL (70-99); Potassium, Blood 4.0 mmol/L (3.5-5.5); Sodium, Blood 145.0 mmol/L (136-145)
[2024-08-18] MEDS ORDERED: Enoxaparin 40 MG/0.4 ML SYR SC SCH (09:00)
[2024-08-18] MEDS ORDERED: Divalproex Sodium 500 MG TABCR PO SCH ×2 (09:00→10:39)
[2024-08-18] MEDS ORDERED: DEPAKOTE ER500 M2 PO (10:27)
--- NOTE | 2024-08-18 12:45 | NUR ---
UPDATE DR. BELLO IN TO SEE PATIENT. VERBAL ORDERS TO DISCONTINUE SI PRECAUTIONS. PT REMAINS PLEASANT AND COOPERATIVE WITH CARE. PT REPOSITIONING HIMSELF IN THE BED. BED BATH OFFERED, BUT PT REFUSES FOR NOW. LR INFUSING PER ORDERS. WILL CONTINUE PLAN OF CARE
--- NOTE | 2024-08-18 17:23 | NUR ---
SHIFT SUMMARY PT REMAINS ALERT AND ORIENTED. O2 SATS HAVE REMAINED ABOVE 90% ON RA. PT DENIES ANY PAIN. HR REMAINS SINUS KOBI TO NSR. BP STABLE. PT HAS BEEN CONTINENT OF BOWEL AND BLADDER THIS AFTERNOON. PT UP TO BSC WITH 1 ASSIST TO TRANSFER. SPOUSE IN TO VISIT PT THIS AFTERNOON. STATUS CHANGED TO MEDICAL THIS AM. REPORT GIVEN TO TITO LEYVA TO ASSUME CARE. PT TO BE TRANSFERRED VIA .
--- NOTE | 2024-08-18 18:06 | NUR ---
PT WAS A ICU TRANSFER. PT RESTING COMFORTABLY. THIS NURSE AGREES WITH PREVIOUS NURSE ASSESSMENT. PT HAS NO QUESTIONS OR CONCERNS AT THIS TIME
[2024-08-19 04:12] VITALS: BP 115/96
--- NOTE | 2024-08-19 04:28 | NUR ---
SHIFT SUMMARY: PT AOX4, TIRED AND SLEEPING WELL. CALLS APPROPRIATELY AND ABLE TO MAKE NEEDS KNOWN. PT TOLERATING FLUIDS OKAY, BUT IS ANNOYED ABOUT HAVING TO KEEP ARM STRAIGHT, FORGETS IN HIS SLEEP. OTHERWISE IS VERY PLEASANT. GOOD PO INTAKE AND TOLERATING PO MEDS. NO SEIZURE ACTIVITY. BEEN RUNNING SINUS KOBI ALL NIGHT. IND WITH URINAL. NO ACUTE OVERNIGHT EVENTS. PT IN BED RESTING, BED IN LOWEST POSITION, CALL LIGHT IN REACH. CONTINUING CARE.
[2024-08-19 07:16] VITALS: BP 128/55
[2024-08-19] MEDS ORDERED: Zinc Sulfate 220 MG Cap (Provides 50MG) PO SCH (09:00)
[2024-08-19 11:10] VITALS: BP 115/79
--- NOTE | 2024-08-19 16:49 | NUR ---
PT WAS DISCHARGED PER MD INSTRUCTIONS. ALL PIVS REMOVED. D/C PACKET IN HAND
[2024-08-19] MEDS ORDERED: Divalproex Sodium 500 MG TABCR PO SCH (21:00)
== END 2024-08-19 16:35 | disposition home or self-care (01) | DRG 101 ==
LOC: ER 12:52 → PCU 12:53 → ICUE 12:53 → EOR 12:53 → ICUE 08-18 01:23 → MEDS 08-18 14:48 → ICUE 08-18 14:49 → MEDS 08-18 17:43
PROVIDERS: Internal Medicine; Nurse Practitioner Acute Care; Physician Assistant; ADMIT Student in an Organized Health Care Education/Training Program
DX: G40.909 Epilepsy, unspecified, not intractable, without status epilepticus (principal); R45.851 Suicidal ideations; Z59.00 Homelessness unspecified; E87.20 Acidosis, unspecified; I69.351 Hemiplegia and hemiparesis following cerebral infarction affecting right dominant side; I69.322 Dysarthria following cerebral infarction; I69.392 Facial weakness following cerebral infarction; E87.6 Hypokalemia; F15.10 Other stimulant abuse, uncomplicated; E78.5 Hyperlipidemia, unspecified; F32.A Depression, unspecified; J45.909 Unspecified asthma, uncomplicated; F10.220 Alcohol dependence with intoxication, uncomplicated; R74.8 Abnormal levels of other serum enzymes; Z87.891 Personal history of nicotine dependence; Z79.82 Long term (current) use of aspirin; Z79.899 Other long term (current) drug therapy; Z88.5 Allergy status to narcotic agent; Z88.6 Allergy status to analgesic agent
CPT/HCPCS: 36415; 70450; 80048; 80053; 80164; 80320; 81001; 82550; 82803; 82947; 83605; 83735; 84146; 84443; 85025; 96361; 96372; 96372-59; 96374; 96375; 96376; 99285-25; A9270; G0378; G0480; J1200; J1630; J1650; J1953; J2250; J3480; J3486; J7030; J7050; J7120